=== PATIENT | female | born 1970 | race Caucasian/White ===

== ENCOUNTER → 2016-08-26 | Outpatient (CLI) | payer OTHER ==
[~2016-08-26] MED LIST: ALPR-475 PO; HYDR-3138 PO; SERT50TA PO; ZOLP10TA5 PO
== END | disposition home or self-care (01) ==
LOC: CFH 13:28
PROVIDERS: ATTEND Internal Medicine Hematology & Oncology
DX: R59.0 Localized enlarged lymph nodes (principal); D47.2 Monoclonal gammopathy
CPT/HCPCS: 76857

== ENCOUNTER 2016-09-02 06:09 | Day surgery (SDC) | payer OTHER ==
[~2016-09-02] VITALS: Ht 172.7 cm; Wt 89.5 kg
[2016-09-02 07:02] VITALS: BP 124/83
[2016-09-02] MEDS ORDERED: SODIUM CHLORIDE 0.9% 1,000 ML IV SCH (07:04)
== END 2016-09-02 07:52 | disposition home or self-care (01) ==
LOC: RAD 06:09 → OUT 07:52
PROVIDERS: ATTEND Internal Medicine Hematology & Oncology
DX: Z02.9 Encounter for administrative examinations, unspecified (principal)
CPT/HCPCS: J7030

== ENCOUNTER → 2016-10-28 | Outpatient (CLI) | payer OTHER | END | disposition home or self-care (01) | LOC: CFH 13:44 | PROVIDERS: ATTEND Internal Medicine Hematology & Oncology | DX: R59.9 Enlarged lymph nodes, unspecified (principal); D47.2 Monoclonal gammopathy | CPT/HCPCS: 76857 ==

== ENCOUNTER → 2016-12-20 | Outpatient (CLI) | payer OTHER ==
[~2016-12-20] MED LIST changes: -HYDR-3138 PO; +HYDR-3237 PO; +OMNIPAQUE 350 MG/ML, 100ML BOTTLE ONE
== END | disposition home or self-care (01) ==
LOC: CFH 09:37
PROVIDERS: ATTEND Specialist
DX: J84.10 Pulmonary fibrosis, unspecified (principal); R91.1 Solitary pulmonary nodule; D47.2 Monoclonal gammopathy
CPT/HCPCS: 71275; Q9967

== ENCOUNTER 2017-04-01 22:45 | Emergency (ER) | payer OTHER ==
[~2017-04-01] VITALS: Ht 172.7 cm; Wt 90.0 kg
[~2017-04-01 22:45] MED LIST changes: -OMNIPAQUE 350 MG/ML, 100ML BOTTLE ONE
[2017-04-01 23:48] LABS: HEMATOCRIT 29.5 % (34.6-47.8); HEMOGLOBIN 10.3 g/dL (11.7-16.4); WHITE BLOOD COUNT 11.4 x10^3/uL (3.4-10)
[2017-04-01 23:52] LABS: RAPID INFLUENZA A POSITIVE (Negative); RAPID INFLUENZA B Negative (Negative)
[2017-04-02] LABS: BLOOD UREA NITROGEN 7 mg/dL (7-18)
[2017-04-02 00:03] VITALS: BP 124/71
[2017-04-02 00:04] LABS: IS PT STATUS REG ER OR PRE ER? YES
== END 2017-04-02 00:50 | disposition home or self-care (01) ==
LOC: ED 04-02 00:25
DX: J09.X2 Influenza due to identified novel influenza A virus with other respiratory manifestations (principal); J45.909 Unspecified asthma, uncomplicated; Z90.49 Acquired absence of other specified parts of digestive tract
CPT/HCPCS: 36415; 71010; 80048; 82040; 84484; 85025; 87400; 93005; 99285